=== PATIENT | female | born 1985 | race Caucasian/White ===

== ENCOUNTER 2019-03-02 00:17 | Emergency (ER) | payer OTHER ==
[2019-03-02] MEDS ORDERED: SODIUM CHLORIDE 0.9% 1,000 ML IV STA (00:51)
[2019-03-02] MEDS ORDERED: VANCOMYCIN IV PER PHARMACY 1 EACH MISC MISCELLANE PRN (00:51)
[2019-03-02 01:47] LABS: Basophils # (A) 0.1 k/uL (0-0.2); Basophils % (A) 1 %; Eosinophils # (A) 0.5 k/uL (0-0.7); Eosinophils % (A) 5 %; HCT 40.1 % (34.0-46.0); Lymphocytes # (A) 2.5 k/uL (1.0-4.8); Lymphocytes % (A) 21 %; MCH 29.3 pg (25.0-35.0); MCHC 32.5 g/dL (31.0-37.0); MCV 90.2 fL (80.0-100.0); Mean Platelet Volume 7.8; Monocytes # (A) 0.5 k/uL (0-1.0); Monocytes % (A) 4 %; Neutrophils # (A) 8.1 k/uL (1.3-7.7); Neutrophils % (A) 69 %; Platelet Count 360 k/uL (150-450); RBC 4.44 m/uL (3.80-5.40); RDW 14.8 % (11.5-15.5); WBC 11.7 k/uL (3.8-10.6)
[2019-03-02] MEDS ORDERED: VANCOMYCIN 1,500 MG in SODIUM CHLORIDE 0.9% 250 ML IVPB ONE (02:00)
[2019-03-02 02:01] LABS: ALT 94 U/L (9-52); AST 107 U/L (14-36); African American GFR (CKD) >90 (>60 ml/min/1.73 sqM); Albumin 5.2 g/dL (3.5-5.0); Alkaline Phosphatase 105 U/L (38-126); Anion Gap 14 mmol/L; Blood Urea Nitrogen 14 mg/dL (7-17); Calcium 9.6 mg/dL (8.4-10.2); Carbon Dioxide 22 mmol/L (22-30); Chloride 106 mmol/L (98-107); Glucose 85 mg/dL (74-99); Non-African American GFR(CKD) >90 (>60 ml/min/1.73 sqM); Sodium 142 mmol/L (137-145)
[2019-03-02 02:03] LABS: Potassium 4.9 mmol/L (3.5-5.1)
--- NOTE | 2019-03-02 02:08 | XR ---
EXAM: XR Right Knee, 3 views CLINICAL HISTORY: ITS.REASON XR Reason: pain TECHNIQUE: Three views of the right knee. COMPARISON: No relevant prior studies available. FINDINGS: Bones/joints: No acute fracture. No dislocation. Enthesophyte at the attachment site of the quadriceps tendon on the patella. Soft tissues: Unremarkable. IMPRESSION: No acute findings. Patellar enthesophyte at the attachment site of the quadriceps tendon.
[2019-03-02] MEDS ORDERED: SULFAMETHOX-TMP 800-160MG 1 EACH TAB PO STA (02:27)
[2019-03-02] MEDS ORDERED: SULFAMETH-TMP DS STARTER PACK 2 TAB BTL PO STA (02:27)
[2019-03-02] MEDS ORDERED: ACETAMINOPHEN TAB 325 MG TAB PO STA (03:01)
--- NOTE | 2019-03-02 03:51 | ED ---
General Adult HPI - General Source: patient, RN notes reviewed, old records reviewed Mode of arrival: ambulatory Limitations: no limitations <Rigo Tanner - Last Filed: 03/02/19 03:49> <Jazmin Luna - Last Filed: 03/03/19 07:17> - General Chief complaint: Extremity Problem,Nontraumatic Stated complaint: rt knee pain Time Seen by Provider: 03/02/19 00:39 - History of Present Illness Initial comments: 33-year-old female patient presents ED chief complaint of pain in anterior aspect of right knee. Patient reports that last night she noticed a small bump in the anterior aspect of her right knee. Patient reports that her cat worse and she developed more pain. Patient is weightbearing, was able to work or while shift when she stands. Denies any systemic symptoms, denies any chance that she can be . Systemic: Pt denies fatigue, fever/chills, rash. Pt denies weakness, night sweats, weight loss. Neuro: Pt denies headache, visual disturbances, syncope or pre-syncope. HEENT: Pt denies ocular discharge or irritation, otalgia, rhinorrhea, pharyngitis or notable lymphadenopathy. Cardiopulmonary: Pt denies chest pain, SOB, heart palpitations, dyspnea on exertion. Abdominal/GI: Pt denies abdominal pain, n/v/d. : Pt denies dysuria, burning w/ urination, frequency/urgency. Denies new onset urinary or bowel incontinence. MSK: Pt denies myalgia, loss of strength or function in extremities. Neuro: Pt denies new onset weakness, paresthesias. (Rigo Tanner) - Related Data Previous Rx's Medication Instructions Recorded Sulfamethox-Tmp 800-160Mg [Bactrim 1 tab PO Q12HR #20 tab 03/02/19 DS 800-160 mg] Allergies Allergy/AdvReac Type Severity Reaction Status Date / Time ibuprofen [From Motrin] Allergy Unknown Verified 07/11/16 03:17 Review of Systems ROS Other: All systems not noted in ROS Statement are negative. <Rigo Tanner - Last Filed: 03/02/19 03:49> ROS Other: All systems not noted in ROS Statement are negative. <Jazmin Luna - Last Filed: 08/11/19 07:17> ROS Statement: Those systems with pertinent positive or pertinent negative responses have been documented in the HPI. 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 HEENT: NC/AT, trachea midline, neck supple, no lymphadenopathy. Posterior pharynx non erythematous, without exudates. External ears appear normal, without discharge. Mucous membranes moist. Eyes PERRLA, EOM intact. There is no scleral icterus. No pallor noted. Cardiopulmonary: RRR, no murmurs, rubs or gallops, no JVD noted. Lungs CTAB in anterior and posterior olvera. No peripheral edema. Abdominal exam: Abdomen soft and non-distended. Abdomen non-tender to palpation in all 4 quadrants. Bowel sounds active in LLQ. No hepatosplenomegaly. No ecchymosis Neuro: CN II-XII grossly intact. No nuchal rigidity. No raccon eyes, no lynn sign, no hemotympanum. No cervical spinal tenderness. MSK: Superficial 2 x 2 centimeter abscess noted in anterior aspect of right knee distal to the patella. Incision and drainage performed displayed small amount of pus. Full active range of motion of knee, ambulatory, distal pulses intact and equal. No posterior calf tenderness bilaterally, homans sign negative bilaterally. Posterior tibialis and radial pulse +2 bilaterally. Sensation intact in upper and lower extremities. Full active ROM in upper and lower extremities, 5/5 stregnth. (Rigo Tanner) Course Vital Signs 03/02/19 03/02/19 03/02/19 00:24 02:12 03:07 Temperature 97.6 F 98.2 F 98.3 F Pulse Rate 88 70 79 Respiratory 18 18 18 Rate Blood Pressure 142/99 138/92 119/81 O2 Sat by Pulse 98 100 99 Oximetry 03/02/19 04:19 Temperature 98.8 F Pulse Rate 90 Respiratory 16 Rate Blood Pressure 116/62 O2 Sat by Pulse 100 Oximetry Procedures - Incision & Drainage Consent Obtained: verbal consent Indication: abscess Site: other (superficial R knee abscess) Size (cm): 2 I&D Cleaning Method: Alcohol Wipe Scalpel Used: #11 I&D Drainage Obtained: Pus, Blood Culture Obtained?: Yes Patient Tolerated Procedure: well <Rigo Tanner - Last Filed: 03/02/19 03:49> Medical Decision Making - Lab Data Result diagrams: 03/02/19 01:29 03/02/19 01:29 <Rigo Tanner - Last Filed: 03/02/19 03:49> - Lab Data Result diagrams: 03/02/19 01:29 03/02/19 01:29 <Jazmin Luna - Last Filed: 03/03/19 07:17> - Medical Decision Making 33-year-old male patient presents ED with 2 facial abscess to anterior aspect of right knee. Patient also has stable, afebrile. Physical exam displayed 2 cm abscess which was drained small amount of pus. Full active range of motion of knee, ambulatory. Laboratory investigations revealed mild leukocytosis, otherwise nonpassive. Plain films displayed no acute process. Patient administered 1 dose of vancomycin in ED, will be discharged with Bactrim. Case discussed and pt seen by Dr. Luna. (Rigo Tanner) I personally saw and evaluated the patient. I do not feel the patient has an infected joint or septic joint. Patient has a superficial abscess on the right anterior knee, it was incised and drained. Patient be discharged home on oral antibiotics. (Jazmin Luna) - Lab Data Lab Results 03/02/19 03/02/19 03/02/19 Range/Units 01:29 01:29 01:29 WBC 11.7 H (3.8-10.6) k/uL RBC 4.44 (3.80-5.40) m/uL Hgb 13.0 (11.4-16.0) gm/dL Hct 40.1 (34.0-46.0) % MCV 90.2 (80.0-100.0) fL MCH 29.3 (25.0-35.0) pg MCHC 32.5 (31.0-37.0) g/dL RDW 14.8 (11.5-15.5) % Plt Count 360 (150-450) k/uL Neutrophils % 69 % Lymphocytes % 21 % Monocytes % 4 % Eosinophils % 5 % Basophils % 1 % Neutrophils # 8.1 H (1.3-7.7) k/uL Lymphocytes # 2.5 (1.0-4.8) k/uL Monocytes # 0.5 (0-1.0) k/uL Eosinophils # 0.5 (0-0.7) k/uL Basophils # 0.1 (0-0.2) k/uL Sodium 142 (137-145) mmol/L Potassium 4.9 (3.5-5.1) mmol/L Chloride 106 (98-107) mmol/L Carbon Dioxide 22 (22-30) mmol/L Anion Gap 14 mmol/L BUN 14 (7-17) mg/dL Creatinine 0.54 (0.52-1.04) mg/dL Est GFR (CKD-EPI)AfAm >90 (>60 ml/min/1.73 sqM) Est GFR (CKD-EPI)NonAf >90 (>60 ml/min/1.73 sqM) Glucose 85 (74-99) mg/dL Plasma Lactic Acid Teja 1.4 (0.7-2.0) mmol/L Calcium 9.6 (8.4-10.2) mg/dL Total Bilirubin 1.0 (0.2-1.3) mg/dL AST 107 H (14-36) U/L ALT 94 H (9-52) U/L Alkaline Phosphatase 105 (38-126) U/L Total Protein 9.0 H (6.3-8.2) g/dL Albumin 5.2 H (3.5-5.0) g/dL Disposition Is patient prescribed a controlled substance at d/c from ED?: No <Rigo Tanner - Last Filed: 03/02/19 03:49> <Jazmin Luna - Last Filed: 03/03/19 07:17> Clinical Impression: Abscess Disposition: HOME SELF-CARE Condition: Stable Instructions (If sedation given, give patient instructions): Abscess (ED) Additional Instructions: Patient to adhere to previously discussed treatment plan and will take medication(s) as directed. Patient to follow up with PCP in 1-2 days. Patient to return to ED if symptoms do not improve. Follow-up with primary care provider. Take medication as directed. Return immediately to ER if condition worsens. Prescriptions: Sulfamethox-Tmp 800-160Mg [Bactrim DS 800-160 mg] 1 tab PO Q12HR #20 tab Referrals: None,Stated [Primary Care Provider] - 1-2 days [facility] [NON-STAFF] - 1-2 days
[2019-03-02 04:22] VITALS: BP 116/62; PULSE 90; RESP 16; TEMP 98.8
== END 2019-03-02 04:24 | disposition home or self-care (01) ==
LOC: EC 00:17
DX: L02.415 Cutaneous abscess of right lower limb (principal); D72.829 Elevated white blood cell count, unspecified; F17.200 Nicotine dependence, unspecified, uncomplicated; Z88.6 Allergy status to analgesic agent
CPT/HCPCS: 36415; 80053; 83605; 85025; 87070; 87205; 87075; 73564; 99284; 10060; 96365; 96366; J3370; 87077; 87186

== ENCOUNTER 2019-03-06 23:38 | Inpatient (IN) | payer OTHER ==
[2019-03-07] MEDS ORDERED: VANCOMYCIN IV PER PHARMACY 1 EACH MISC MISCELLANE PRN (01:45)
[2019-03-07] MEDS ORDERED: VANCOMYCIN 1,500 MG in SODIUM CHLORIDE 0.9% 250 ML IVPB STA (01:46)
[2019-03-07 02:26] LABS: Basophils # (A) 0.1 k/uL (0-0.2); Basophils % (A) 1 %; Eosinophils # (A) 0.4 k/uL (0-0.7); Eosinophils % (A) 3 %; HCT 39.9 % (34.0-46.0); Lymphocytes # (A) 3.2 k/uL (1.0-4.8); Lymphocytes % (A) 31 %; MCHC 32.7 g/dL (31.0-37.0); MCV 88.6 fL (80.0-100.0); Mean Platelet Volume 7.9; Monocytes # (A) 0.4 k/uL (0-1.0); Monocytes % (A) 4 %; Neutrophils # (A) 6.2 k/uL (1.3-7.7); Neutrophils % (A) 60 %; Platelet Count 387 k/uL (150-450); RDW 14.7 % (11.5-15.5); WBC 10.5 k/uL (3.8-10.6)
[2019-03-07 02:29] LABS: African American GFR (CKD) >90 (>60 ml/min/1.73 sqM); Anion Gap 14 mmol/L; Blood Urea Nitrogen 13 mg/dL (7-17); Calcium 9.8 mg/dL (8.4-10.2); Carbon Dioxide 24 mmol/L (22-30); Chloride 104 mmol/L (98-107); Glucose 87 mg/dL (74-99); Non-African American GFR(CKD) >90 (>60 ml/min/1.73 sqM); Potassium 3.9 mmol/L (3.5-5.1); Sodium 142 mmol/L (137-145)
[2019-03-07] MEDS ORDERED: ACETAMINOPHEN TAB 325 MG TAB PO PRN (05:57)
[2019-03-07] MEDS ORDERED: NALOXONE 0.4 MG/ML 1 ML VIAL IV PRN (05:57)
--- NOTE | 2019-03-07 06:22 | ED ---
Skin/Abscess/FB HPI - General Chief complaint: Skin/Abscess/Foreign Body Stated complaint: Abcess on Rt Knee Dx MRSA Time Seen by Provider: 03/07/19 00:40 Source: patient Mode of arrival: ambulatory Limitations: no limitations - History of Present Illness Initial comments: This patient is 33-year-old woman who presents for reevaluation of an abscess to the prepatellar area of the right knee. The patient states that this had developed approximately a week ago starting as a small pimple-like lesion. She states over the next 1-2 days it had increased and she was seen here. The patient had incision and drainage performed and was written prescription for Bactrim which she states she has been taking twice per day. Despite this she notes that the abscess has increased in size and there is also moderate amount of pain associated. She has noted some chills but otherwise no systemic symptoms. MD complaint: abscess/boil -: days(s) Tetanus Up to Date: yes Location: RLE Severity: moderate Quality: aching Consistency: constant Improves with: none Worsens with: none Context: none - Related Data Previous Rx's Medication Instructions Recorded Sulfamethox-Tmp 800-160Mg [Bactrim 1 tab PO Q12HR #20 tab 03/02/19 DS 800-160 mg] Allergies Allergy/AdvReac Type Severity Reaction Status Date / Time ibuprofen [From Motrin] Allergy Unknown Verified 07/11/16 03:17 Review of Systems ROS Statement: Those systems with pertinent positive or pertinent negative responses have been documented in the HPI. ROS Other: All systems not noted in ROS Statement are negative. Constitutional: Reports: chills. Denies: fever Respiratory: Denies: cough, dyspnea Cardiovascular: Denies: chest pain, palpitations, syncope Gastrointestinal: Denies: abdominal pain, vomiting, diarrhea Skin: Reports: as per HPI, lesions (Abscess, anterior right patellar area). 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 Absent: respiratory distress, wheezes, rales, rhonchi, stridor Cardiovascular Exam: Present: regular rate, normal rhythm, normal heart sounds. Absent: systolic murmur, diastolic murmur, rubs, gallop GI/Abdominal exam: Present: soft. Absent: tenderness Extremities exam: Present: tenderness (Prepatellar area, right knee), normal capillary refill, other (Patient has approximately 4 cm diameter area of swelling, erythema, warmth to the right prepatellar area. There is abscess centered in this which is draining.). Absent: pedal edema, calf tenderness Skin exam: Present: warm, dry, intact, erythema. Absent: rash Course Vital Signs 03/06/19 03/07/19 23:59 03:55 Temperature 97.5 F L 97.6 F Pulse Rate 62 63 Respiratory 20 18 Rate Blood Pressure 134/90 119/95 O2 Sat by Pulse 100 99 Oximetry Medical Decision Making - Medical Decision Making Patient is 33-year-old woman presenting with worsening of a prepatellar abscess to the right knee. She has been taking Bactrim as outpatient treatment. She did have incision and drainage here on 03/02. Given the worsening on appropriate MRSA coverage, will admit for vancomycin, to have probable PICC line placement and continue as outpatient - Lab Data Result diagrams: 03/07/19 02:10 03/07/19 02:10 Lab Results 03/07/19 03/07/19 Range/Units 02:10 02:10 WBC 10.5 (3.8-10.6) k/uL RBC 4.50 (3.80-5.40) m/uL Hgb 13.0 (11.4-16.0) gm/dL Hct 39.9 (34.0-46.0) % MCV 88.6 (80.0-100.0) fL MCH 29.0 (25.0-35.0) pg MCHC 32.7 (31.0-37.0) g/dL RDW 14.7 (11.5-15.5) % Plt Count 387 (150-450) k/uL Neutrophils % 60 % Lymphocytes % 31 % Monocytes % 4 % Eosinophils % 3 % Basophils % 1 % Neutrophils # 6.2 (1.3-7.7) k/uL Lymphocytes # 3.2 (1.0-4.8) k/uL Monocytes # 0.4 (0-1.0) k/uL Eosinophils # 0.4 (0-0.7) k/uL Basophils # 0.1 (0-0.2) k/uL Sodium 142 (137-145) mmol/L Potassium 3.9 (3.5-5.1) mmol/L Chloride 104 (98-107) mmol/L Carbon Dioxide 24 (22-30) mmol/L Anion Gap 14 mmol/L BUN 13 (7-17) mg/dL Creatinine 0.71 (0.52-1.04) mg/dL Est GFR (CKD-EPI)AfAm >90 (>60 ml/min/1.73 sqM) Est GFR (CKD-EPI)NonAf >90 (>60 ml/min/1.73 sqM) Glucose 87 (74-99) mg/dL Calcium 9.8 (8.4-10.2) mg/dL Disposition Clinical Impression: Abscess Disposition: ADMITTED IP TO THIS HOSP Condition: Fair
[2019-03-07] MEDS: SODIUM CHLORIDE 0.9% 1,000 ML IV SCH (06:30)
--- NOTE | 2019-03-07 07:13 | P.HPIM ---
History of Present Illness H&P Date: 03/07/19 The patient is a 33 yo F with no known PMH who presented to the ED for a R anterior knee ulcer. The patient was previously seen in the ED on 03/02/2019 for similar complaint, and was noted to have a 2 cm anterior right knee abscess which was drained and the patient was discharged home on Bactrim. The culture from the drainage grew MRSA sensitive to Bactrim and the patient notes compliance with antibiotic, though states no improvement. She notes continued right anterior knee pain and swelling. She notes that she initially developed this after she went swimming [place] a local hall, when she had developed a lesion at the site which then gradually worsened. She denied fever, chills, nausea, or vomiting. She underwent an extensive evaluation in the emergency room with WBC count 10.5, hemoglobin 13, platelets 387, sodium 142, potassium 3.9, and glucose 87. She is being admitted to the medicine service for failure of outpatient therapy despite being on appropriate antibiotics. Review of Systems Pertinent positives and negatives as discussed in HPI, a complete review of systems was performed and all other systems are negative. 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 History of Any Multi-Drug Resistant Organisms: MRSA Date of last positivie culture/infection: 03/02/19 MDRO Source:: MRSA KNEE Past Surgical History: Cholecystectomy, Orthopedic Surgery Past Psychological History: No Psychological Hx Reported Smoking Status: Current every day smoker Past Alcohol Use History: None Reported Past Drug Use History: None Reported Medications and Allergies Home Medications Medication Instructions Recorded Confirmed Type Sulfamethox-Tmp 800-160Mg [Bactrim 1 tab PO Q12HR #20 tab 03/02/19 03/07/19 Rx DS 800-160 mg] Allergies Allergy/AdvReac Type Severity Reaction Status Date / Time ibuprofen [From Motrin] Allergy Unknown Verified 07/11/16 03:17 Physical Exam Vitals: Vital Signs Temp Pulse Resp BP Pulse Ox 03/07/19 03:55 97.6 F 63 18 119/95 99 03/06/19 23:59 97.5 F L 62 20 134/90 100 Intake and Output 03/06/19 03/07/19 03/07/19 22:59 06:59 14:59 Other: Weight 83.461 kg General: non toxic, no distress, appears at stated age, obese Derm: Right anterior knee abscess, immediately distal to the patella Head: atraumatic, normocephalic, symmetric Eyes: EOMI, no lid lag, anicteric sclera, pupils equal round reactive to light ENT: Nose and ears atraumatic, no thrush, no pharyngeal erythema Neck: No thyromegaly, no cervical lymphadenopathy, trachea midline, supple Mouth: no lip lesion, mucus membranes moist Cardiovascular: S1S2 reg, no murmur, positive posterior tibial pulse bilateral, no edema, capillary refill less than 2 seconds Lungs: CTA bilateral, no rhonchi, no rales , no accessory muscle use Abdominal: soft, nontender to palpation, no guarding, no appreciable organomegaly, normal bowel sounds Ext: no gross muscle atrophy, muscle strength 5 out of 5 in all 4 extremities grossly, limited range of motion in right lower extremity due to pain, no contractures, Neuro: CN II-XI grossly intact, light touch intact all 4 extremities, finger to nose within normal limits, Psych: Alert, oriented, appropriate affect Results CBC & Chem 7: 03/07/19 02:10 03/07/19 02:10 Assessment and Plan Plan: Right knee abscess, MRSA -Continue with vancomycin -Patient will likely need a PICC line for outpatient antibiotics DVT prophylaxis -Lovenox The patient is admitted with an anticipated less than 2 midnight stay for evaluation of R knee abscess CODE STATUS:Full Code Discussed with: Patient, Anticipated discharge date: 03/08/[address]: Home A total of 35 minutes was spent on the care of this complex patient more than 50% of the time was spent in counseling and care coordination.
[2019-03-07 07:57] VITALS: BMI 30.6
--- NOTE | 2019-03-07 09:50 | P.CNOR ---
History of Present Illness - [facility] Consult date: 03/07/19 Consult reason: other History of present illness: Patient is a 33-year-old female who presented to [facility] early this morning regarding a right knee problem. Patient developed an ulcer type lesion on the knee about a week ago [facility] She did report to [facility] on 03/02/2019, the emergency staff performed an I&D at the bedside, cultures were taken. She was placed on oral Bactrim and discharged home. She presented back to the hospital today, no improvement in her symptoms. She was then admitted into the observation unit under internal medicine for further workup, our orthopedic team was consulted. Patient was examined today at bedside, she is resting comfortably, she has family present. She notes most discomfort over the lower anterior aspect of the right knee. She has no issue with extending or flexing the knee. She denies any hip pain. She denies any foot and ankle pain. She denies any recent trauma to the region. She denies any previous orthopedic surgery involving the right lower extremity. 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 History of Any Multi-Drug Resistant Organisms: MRSA Year Discovered:: 03/02/19 MDRO Source:: MRSA KNEE Past Surgical History: Cholecystectomy, Orthopedic Surgery Past Psychological History: No Psychological Hx Reported Smoking Status: Current every day smoker Past Alcohol Use History: None Reported Past Drug Use History: None Reported Medications and Allergies Home Medications Medication Instructions Recorded Confirmed Type Sulfamethox-Tmp 800-160Mg [Bactrim 1 tab PO Q12HR #20 tab 03/02/19 03/07/19 Rx DS 800-160 mg] Acetaminophen [Tylenol] 650 mg PO Q6H PRN 03/07/19 03/07/19 History Allergies Allergy/AdvReac Type Severity Reaction Status Date / Time ibuprofen [From Motrin] Allergy Unknown Verified 03/07/19 07:43 Physical Examination Right lower extremity: Obvious lesion over the anterior inferior aspect of the right knee, there is erythema and soft tissue swelling. Tenderness with palpation over the prepa tellar bursa of the right knee. There is purulent drainage noted. No obvious effusion is appreciated on exam. She can extend and flex the knee fully with minimal difficulty. Logroll maneuver the hip reproduces no pain. Calf is soft, no tenderness with palpation. Plantar flexion, dorsiflexion, EHL, FHL are intact. Sensory exam to light touch is intact. Dorsal pedis pulses 2+. Results - Labs Labs: H & H 03/07/19 Range/Units 02:10 Hgb 13.0 (11.4-16.0) gm/dL Hct 39.9 (34.0-46.0) % Result Diagrams: 03/07/19 02:10 03/07/19 02:10 Assessment and Plan Plan: Assessment: 1. Right knee infected prepatellar bursa 2. Status post I&D right knee abscess 3. Failed outpatient antibiotic treatment Plan: I was able to discuss the case, including with physical exam findings with my attending physician Dr. Navarrete. We would like to proceed with a incision and drainage with possible irrigation and debridement of the prepatellar bursa on the right knee. Patient did eat breakfast this morning, so we will be unable to do this afternoon. Our plan is to proceed with his surgery on 03/08/2019. Risk and benefits of the procedure were discussed with patient at bedside, she is in good understanding and would like to proceed. Obtain consent. Nothing by mouth after midnight Previous cultures that were done on 03/02/2019 did reveal MRSA infection. Infectious disease consult for outpatient antibiotic treatment Weight-bear as tolerated Medical recommendations Further recommendations to follow Time with Patient: Less than 30
[2019-03-07] MEDS ORDERED: VANCOMYCIN 1,500 MG in SODIUM CHLORIDE 0.9% 250 ML IVPB SCH ×4 (10:00)
[2019-03-07] MEDS: KETOROLAC 30 MG/ML 1 ML VIAL IVP SCH ×2 (16:16→23:23)
--- NOTE | 2019-03-07 17:03 | P.PN ---
Subjective Progress Note Date: 03/07/19 Principal diagnosis: right knee pain Patient is a 33-year-old female with no known past medical history who presented to the ER for right anterior knee abscess. Patient was initially seen in the ER on 03/02/19 for similar complaints at that point in time she was noted to have a 2 cm anterior right knee abscess which was drained and she was subsequently discharged home on Bactrim. Culture from the prior abscess grew MRSA sensitive to Bactrim and patient reported compliance with antibiotics. Her knee did not improve so she really presented to the ER. On presentation there her vital signs were within normal limits and laboratory analysis is essentially unremarkable. She did not have any repeat imaging as she had a x-ray of her knee prior which did not show any bony abnormality. Seen by orthopedic surgery and recommendations are for I&D in the OR which will be done on 03/08/19 Patient seen and examined at bedside. She denies any chest pain, shortness nadeem ath, nausea, vomiting, or diarrhea. She is still having significant pain in her right knee. She states that Toradol has been helping some but wears off quickly. Objective - Vital Signs Vital signs: Vital Signs Temp 98.8 F 03/07/19 16:00 Pulse 80 03/07/19 16:00 Resp 16 03/07/19 16:00 BP 93/52 03/07/19 16:00 Pulse Ox 98 03/07/19 16:00 Intake & Output 03/06/19 03/07/19 03/07/19 18:59 06:59 18:59 Weight 83.461 kg - Exam General: non toxic, no distress, appears at stated age Derm: Disclosed the right patella there is a large area of fluctuance draining purulent material, warm, dry Head: atraumatic, normocephalic, symmetric Eyes: EOMI, no lid lag, anicteric sclera Mouth: no lip lesion, mucus membranes moist Cardiovascular: S1S2 reg, no murmur, positive posterior tibial pulse bilateral, Lungs: CTA bilateral, no rhonchi, no rales , no accessory muscle use Abdominal: soft, nontender to palpation, no guarding, no appreciable organomegaly Ext: no gross muscle atrophy, no edema, no contractures Neuro: CN II-XI grossly intact, no focal neuro deficits Psych: Alert, oriented, appropriate affect - Labs CBC & Chem 7: 03/07/19 02:10 03/07/19 02:10 Assessment and Plan Assessment: Right knee abscess, failed outpatient treatment -Pain control, vancomycin -Infectious disease consultation requested by orthopedic surgery -Plan is for incision and drainage in a.m. -IV fluids -Repeat kidney function in a.m. Tobacco abuse -Cessation -Nicotine replacement Obesity with BMI 30.6 -Outpatient structured weight loss DVT prophylaxis: Early ambulation Discussed with: Patient, nursing, orthopedic surgery Anticipated discharge: In a.m. Anticipated discharge place: Home A total of 35 minutes was spent on the care of this complex patient more than 50% of the time was spent in counseling and care coordination.
[2019-03-07 17:06] LABS: Appearance,Urine Clear (Clear); Bilirubin,Urine Negative (Negative); Blood,Urine Negative (Negative); Color,Urine Yellow; Glucose,Urine (UA) Negative (Negative); Ketones,Urine Negative (Negative); Leukocyte Esterase,Urine Moderate (Negative); Mucus,Urine Rare /hpf; Nitrite,Urine Negative (Negative); PH, Urine 6.5 (5.0-8.0); Protein,Urine Negative (Negative); RBC,Urine <1 /hpf (0-5); Specific Gravity,Urine 1.012 (1.001-1.035); Squamous Epithelial Cell,Urine 5 /hpf (0-4); WBC,Urine 6 /hpf (0-5)
[2019-03-07 17:14] LABS: Amphetamine Screen,Urine Not Detected (NotDetected); Barbiturate Screen,Urine Not Detected (NotDetected); Benzodiazepines Screen,Urine Not Detected (NotDetected); Cocaine Screen,Urine Not Detected (NotDetected); Methadone Screen, Urine Not Detected (NotDetected); Opiate Screen,Urine Not Detected (NotDetected); Oxycodone Screen, Urine Not Detected (NotDetected); Phencyclidine Screen,Urine Not Detected (NotDetected); Tricyclic Antidepressant,Urine Not Detected (NotDetected); Urn Cannabinoid Scrn Not Detected (NotDetected)
[2019-03-07] MEDS: NICOTINE 7MG/24HR PATCH TRANSDERM SCH (17:49)
[2019-03-07] MEDS: VANCOMYCIN 1,500 MG in SODIUM CHLORIDE 0.9% 250 ML IVPB SCH (18:06)
[2019-03-07] MEDS: LACTATED RINGERS 1,000 ML IV SCH (22:39)
--- NOTE | 2019-03-07 22:59 | P.CONS ---
History of Present Illness - Reason for Consult Consult date: 03/07/19 - Chief Complaint right knee pain - History of Present Illness 33-year-old woman presents to the emergency center for further evaluation. She been the ER a few days prior where she is having difficulties with her right knee. She's having pain and swelling and development of the wound that was pa inful swollen and having some drainage. The site was cultured and she was placed on Bactrim with some local wound care. Despite taking her antibiotics and having some local wound care of the site continued to worsen that she now presents with much increased size to the knee, pain and discomfort that is increased as well as some low-grade fever and leukocytosis. She subsequently is brought in the hospital been seen by orthopedics with plans for a surgical intervention. The patient has a somewhat complex history in that she stays in [place] [facility] house after her time in [place], she was there because of failure of child support as well as drug possession. She relates that Crystal meth has been her previous drug of choice is currently not actively using. She's trying to improve her status so that she would be able to spend some time with her children. She relates that she was with friends and she was swimming in the [place]. She does not recall any distinct injury for the onset of the wound to the knee and it's drainage. The pain and swelling are significant and it limits her a bility to ambulate. Review of Systems HEENT:Denies headache or acute visual change. Denies sinus or mouth discomforts. Denies neck stiffness or pain. Denies significant oral cavity pain. Denies difficulty on swallowing. Lungs: Denies significant shortness of breath, cough, sputum production, or hemoptysis. Cardiovascular: Denies significant shortness of breath, chest pain, chest wall pain, orthopnea, dyspnea on exertion, syncope Gastrointestinal:Denies nausea, vomiting, diarrhea, constipation, hematemesis, melena, hematochezia. No no significant change of bowel habit noticed. Musculoskeletal: denies significant myalgias or arthralgias. No new joint swe lling. Denies new back pain. Skin: as per the HPI lesion on her right knee Neuro: Denies headache or visual change. Denies any new onset weakness or difficulty with ambulation. Denies falls or seizures. Psychiatric:chronic anxiety and depression Endocrine: has some fatigue. Weight is starting to improve with stop of her drug use 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 History of Any Multi-Drug Resistant Organisms: MRSA Year Discovered:: 03/02/19 MDRO Source:: MRSA KNEE Past Surgical History: Cholecystectomy, Orthopedic Surgery Past Psychological History: No Psychological Hx Reported Additional Psychological History / Comment(s): Single. 3 children are all in foster homes related to her drug use and legal problems. Ongoing tobacco smoker. Denies significant alcohol use. He has a extensive history of recreational drug use with crystal methamphetamine being her primary drug of choice. No international travel. experience. Resides [place] [facility] [place]. Is not in a formal rehab program, thinks she may attend some NA meetings. No animal exposures Smoking Status: Current every day smoker Past Alcohol Use History: None Reported Past Drug Use History: None Reported Medications and Allergies Home Medications and Allergies Comment(s): Current Medications Acetaminophen (Tylenol Tab) 650 mg PO Q6HR PRN PRN Reason: Mild Pain or Fever > 100.5 Last Admin: 03/07/19 08:09 Dose: 650 mg Documented by: Hydrocodone Bitart/Acetaminophen ([place] 5-325) 1 each PO Q6HR PRN PRN Reason: Moderate Pain Sodium Chloride (Saline 0.9%) 1,000 mls @ 20 mls/hr IV .Q24H [facility] Last Admin: 03/07/19 06:30 Dose: 20 mls/hr Documented by: Vancomycin HCl 1,500 mg/ (Sodium Chloride) 250 mls @ 125 mls/hr IVPB Q8H [facility] Last Admin: 03/07/19 18:06 Dose: 125 mls/hr Documented by: Lactated Ringer's (Lactated Ringers) 1,000 mls @ 20 mls/hr IV .Q24H [facility] Last Admin: 03/07/19 22:39 Dose: Not Given Documented by: Ketorolac Tromethamine (Toradol) 30 mg IVP Q6HR [facility] Stop: 03/12/19 16:01 Last Admin: 03/07/19 16:16 Dose: 30 mg Documented by: Miscellaneous Information (Vancomycin Trough Due) 1 each MISCELLANE ONCE ONE Stop: 03/08/19 09:01 Naloxone HCl (Narcan) 0.2 mg IV Q2M PRN PRN Reason: Opioid Reversal Nicotine (Habitrol 7mg/24hr Patch) 1 patch TRANSDERM DAILY [facility] Last Admin: 03/07/19 17:49 Dose: 1 patch Documented by: Home Medications Medication Instructions Recorded Confirmed Type Sulfamethox-Tmp 800-160Mg [Bactrim 1 tab PO Q12HR #20 tab 03/02/19 03/07/19 Rx DS 800-160 mg] Acetaminophen [Tylenol] 650 mg PO Q6H PRN 03/07/19 03/07/19 History Allergies Allergy/AdvReac Type Severity Reaction Status Date / Time ibuprofen [From Motrin] Allergy Rash/Hives Verified 03/07/19 15:18 Physical Exam Vitals: Vital Signs Temp Pulse Pulse Resp BP BP Pulse Ox 03/07/19 16:00 98.8 F 80 16 93/52 98 03/07/19 07:46 71 03/07/19 06:30 97.3 F L 71 16 105/69 97 03/07/19 03:55 97.6 F 63 18 119/95 99 03/06/19 23:59 97.5 F L 62 20 134/90 100 Intake and Output 03/07/19 03/07/19 03/07/19 06:59 14:59 22:59 Other: Voiding Method Toilet # Voids 1 Weight 83.461 kg HEENT: Anicteric conjunctiva are pink and moist nasal mucosa grossly intact without significant lesions, there is no thrush. Oral cavity shows the very p oor dentition with the generalized fracturing carious teeth commonly seen with crystal methamphetamine use Neck: The neck is supple without significant lymphadenopathy or thyromegaly. Lungs: Good bilateral air entry with evidence of some expiratory wheezing but no significant bronchial sounds Heart: Regular rate and rhythm with an audible S1-S2, no S3 no S4. There is no significant murmur click or rub, PMI was nondisplaced. Abdomen: Positive bowel sounds soft and nontender without palpable masses or organomegaly. There was no guarding or rebound. Extremities: The upper extremities have excellent pulses they are symmetric, no significant petechiae or telangiectasia. No splinter hemorrhages were noted. Left lower extremity without acute abnormalities or edema. Regular actually shows evidence of significant swelling especially about the knee. The ulceration is noted that has purulent drainage there is dense erythema and fluctuance. There is distinct tenderness to the manipulation. She has pain upon bearing weight but is able to bend the joint. The right hip and ankle are without difficulties with range of motion. There is no significant right inguinal lymphadenopathy no other abnormal lymph nodes were noted Neuro: Awake alert oriented to person place and time. There are no acute new gross focal sensory motor deficits. Results CBC & Chem 7: 03/07/19 02:10 03/07/19 02:10 Labs: Abnormal Lab Results - Last 24 Hours (Table) 03/07/19 Range/Units 16:00 Ur Leukocyte Esterase Moderate H (Negative) Urine WBC 6 H (0-5) /hpf Ur Squamous Epith Cells 5 H (0-4) /hpf Urine Mucus Rare H (None) /hpf Laboratory Results WBC 10.5 k/uL (3.8-10.6) 03/07/19 02:10 RBC 4.50 m/uL (3.80-5.40) 03/07/19 02:10 Hgb 13.0 gm/dL (11.4-16.0) 03/07/19 02:10 Hct 39.9 % (34.0-46.0) 03/07/19 02:10 MCV 88.6 fL (80.0-100.0) 03/07/19 02:10 MCH 29.0 pg (25.0-35.0) 03/07/19 02:10 MCHC 32.7 g/dL (31.0-37.0) 03/07/19 02:10 RDW 14.7 % (11.5-15.5) 03/07/19 02:10 Plt Count 387 k/uL (150-450) 03/07/19 02:10 Neutrophils % 60 % 03/07/19 02:10 Lymphocytes % 31 % 03/07/19 02:10 Monocytes % 4 % 03/07/19 02:10 Eosinophils % 3 % 03/07/19 02:10 Basophils % 1 % 03/07/19 02:10 Neutrophils # 6.2 k/uL (1.3-7.7) 03/07/19 02:10 Lymphocytes # 3.2 k/uL (1.0-4.8) 03/07/19 02:10 Monocytes # 0.4 k/uL (0-1.0) 03/07/19 02:10 Eosinophils # 0.4 k/uL (0-0.7) 03/07/19 02:10 Basophils # 0.1 k/uL (0-0.2) 03/07/19 02:10 Sodium 142 mmol/L (137-145) 03/07/19 02:10 Potassium 3.9 mmol/L (3.5-5.1) 03/07/19 02:10 Chloride 104 mmol/L (98-107) 03/07/19 02:10 Carbon Dioxide 24 mmol/L (22-30) 03/07/19 02:10 Anion Gap 14 mmol/L 03/07/19 02:10 BUN 13 mg/dL (7-17) 03/07/19 02:10 Creatinine 0.71 mg/dL (0.52-1.04) 03/07/19 02:10 Est GFR (CKD-EPI)AfAm >90 (>60 ml/min/1.73 sqM) 03/07/19 02:10 Est GFR (CKD-EPI)NonAf >90 (>60 ml/min/1.73 sqM) 03/07/19 02:10 Glucose 87 mg/dL (74-99) 03/07/19 02:10 Calcium 9.8 mg/dL (8.4-10.2) 03/07/19 02:10 Urine Color Yellow 03/07/19 16:00 Urine Appearance Clear (Clear) 03/07/19 16:00 Urine pH 6.5 (5.0-8.0) 03/07/19 16:00 Ur Specific [place] 1.012 (1.001-1.035) 03/07/19 16:00 Urine Protein Negative (Negative) 03/07/19 16:00 Urine Glucose (UA) Negative (Negative) 03/07/19 16:00 Urine Ketones Negative (Negative) 03/07/19 16:00 Urine Blood Negative (Negative) 03/07/19 16:00 Urine Nitrite Negative (Negative) 03/07/19 16:00 Urine Bilirubin Negative (Negative) 03/07/19 16:00 Urine Urobilinogen 2.0 mg/dL (<2.0) 03/07/19 16:00 Ur Leukocyte Esterase Moderate (Negative) H 03/07/19 16:00 Urine RBC <1 /hpf (0-5) 03/07/19 16:00 Urine WBC 6 /hpf (0-5) H 03/07/19 16:00 Ur Squamous Epith Cells 5 /hpf (0-4) H 03/07/19 16:00 Urine Mucus Rare /hpf (None) H 03/07/19 16:00 Urine HCG, Qual Not Detected (Not Detectd) 03/07/19 16:00 Urine Opiates Screen Not Detected (NotDetected) 03/07/19 16:00 Ur Oxycodone Screen Not Detected (NotDetected) 03/07/19 16:00 Urine Methadone Screen Not Detected (NotDetected) 03/07/19 16:00 Ur Propoxyphene Screen Not Detected (NotDetected) 03/07/19 16:00 Ur Barbiturates Screen Not Detected (NotDetected) 03/07/19 16:00 U Tricyclic Antidepress Not Detected (NotDetected) 03/07/19 16:00 Ur Phencyclidine Scrn Not Detected (NotDetected) 03/07/19 16:00 Ur Amphetamines Screen Not Detected (NotDetected) 03/07/19 16:00 U Methamphetamines Scrn Not Detected (NotDetected) 03/07/19 16:00 U Benzodiazepines Scrn Not Detected (NotDetected) 03/07/19 16:00 Urine Cocaine Screen Not Detected (NotDetected) 03/07/19 16:00 U Marijuana (THC) Screen Not Detected (NotDetected) 03/07/19 16:00 outpatient culture with MRSA Assessment and Plan (1) Abscess Current Visit: Yes Status: Acute Code(s): L02.91 - CUTANEOUS ABSCESS, UNSPECIFIED SNOMED Code(s): 013221293 (2) Infection of right prepatellar bursa Narrative/Plan: 33-year-old female presents to the hospital with increasing pain and s welling to the right knee, without significant improvement after being seen in the emergency center and placed on oral Bactrim. Anti-inflammatories were also given without significant improvement of her acute pain. She currently presents with the increasing swelling discomfort and drainage to the knee. She's been evaluated by orth[facility]icsplans for incision and drainage to that site tomorrow. Based on the outpatient culture vancomycin has been initiated. Toradol was added to try to improve her pain and discomfort. Leukocytosis record related to the infection of the knee. The findings of surgery will help determine the course of antibiotic therapy after her discharge. She resides in a [place] [facility] house and would not be a candidate for any type of IV therapy. She is a smoker and requests a nicotine patch. Current Visit: Yes Status: Acute Code(s): M71.161 - OTHER INFECTIVE BURSITIS, RIGHT KNEE SNOMED Code(s): 6150436221466080
[2019-03-08] MEDS: VANCOMYCIN 1,500 MG in SODIUM CHLORIDE 0.9% 250 ML IVPB SCH ×3 (01:28→18:06)
[2019-03-08] MEDS: KETOROLAC 30 MG/ML 1 ML VIAL IVP SCH ×4 (05:39→23:58)
[2019-03-08] MEDS: SODIUM CHLORIDE 0.9% 1,000 ML IV SCH (06:12)
[2019-03-08] MEDS ORDERED: VANCOMYCIN TROUGH DUE 1 EACH MISC MISCELLANE ONE (09:00)
[2019-03-08] MEDS: NICOTINE 7MG/24HR PATCH TRANSDERM SCH (09:23)
[2019-03-08 09:55] LABS: African American GFR (CKD) >90 (>60 ml/min/1.73 sqM); Anion Gap 6 mmol/L; Blood Urea Nitrogen 16 mg/dL (7-17); Calcium 8.9 mg/dL (8.4-10.2); Carbon Dioxide 23 mmol/L (22-30); Chloride 111 mmol/L (98-107); Glucose 88 mg/dL (74-99); Non-African American GFR(CKD) >90 (>60 ml/min/1.73 sqM); Potassium 4.8 mmol/L (3.5-5.1); Sodium 140 mmol/L (137-145)
[2019-03-08] MEDS: HYDROcodone/APAP 5-325MG 1 EACH TAB PO PRN ×2 (10:52→20:46)
[2019-03-08] MEDS ORDERED: IV FLUID CONTINUATION 1,000 ML IV ONE (12:56)
[2019-03-08] MEDS ORDERED: DEXAMETHASONE SOD PHOS (MDV) 100 MG/10 ML VIAL IVP ONE (13:03)
[2019-03-08] MEDS ORDERED: ONDANSETRON 4 MG/2 ML VIAL IVP ONE (13:03)
[2019-03-08] MEDS ORDERED: fentaNYL (PF) 50 MCG/ML 2 ML AMP ONE (13:15)
[2019-03-08] MEDS ORDERED: LIDOCAINE 1% INJ 10MG/ML (20 ML MDV) ONE (13:15)
[2019-03-08] MEDS ORDERED: MIDAZOLAM 2 MG/2 ML VIAL ONE (13:15)
[2019-03-08] MEDS ORDERED: PROPOFOL 10 MG/ML 20 ML VIAL IV ONE (13:15)
[2019-03-08] MEDS ORDERED: ceFAZolin 3,000 MG in SODIUM CHLORIDE 0.9% IRRIGATIO 3,000 ML IRRIGATION ONE (13:54)
--- NOTE | 2019-03-08 14:00 | P.OP ---
Date of Procedure: 03/08/19 Preoperative Diagnosis: Septic right prepatellar bursitis Postoperative Diagnosis: Same Procedure(s) Performed: Incision and drainage with irrigation and debridement right septic prepatellar bursitis Anesthesia: JUSTINA Surgeon: Rigo Navarrete Pocket [employer] Pulley Machine Operator #1: Andrea Del Toro Estimated Blood Loss (ml): 5 Pathology: other (Deep cultures) Condition: stable Disposition: PACU Indications for Procedure: The patient's a 33-year-old female presents with a one-week history of progressive right knee pain, erythema, swelling, and drainage. She failed outpatient therapy. He discussion of the risks and benefits of operative intervention was made with patient and she elected to proceed. Operative risks to include persistence of infection and possible need for subsequent procedures was discussed. Informed consent was obtained. Operative Findings: As below Description of Procedure: The patient was brought to the operating room, and after induction of general anesthesia the right lower extremity was prepped and draped in normal fashion. The limb was elevated to facilitate exsanguination. The tourniquet was inflated to 250 mmHg. A 3 cm incision was then made over the area fluctuance over the prepatellar region. The skin and subcutaneous tissues were divided sharply. Gross purulence was expressed. Deep cultures were obtained. The prepatellar bursal tissue was excised sharply with a scalpel. Necrotic wound edges were also debrided sharply with a scalpel. The wound was copiously irrigated with normal saline. The skin was loosely reapproximated with 30 simple nylon sutures over a drain. A sterile dressing was applied. The tourniquet was deflated less than 25 minutes total tourniquet time. The patient was awoken from general anesthesia and transferred to recovery room in good condition. Blood loss was estimated 5 mL. No complications were incurred. Sponge and needle counts were correct in the case.
[2019-03-08] MEDS: HYDROmorphone 1 MG/ML 1 ML SYRINGE IVP ONE ×2 (14:17→14:26)
--- NOTE | 2019-03-08 18:59 | P.PN ---
Subjective Progress Note Date: 03/08/19 Principal diagnosis: right knee pain Patient is a 33-year-old female with no known past medical history who presented to the ER for right anterior knee abscess. Patient was initially seen in the ER on 03/02/19 for similar complaints at that point in time she was noted to have a 2 cm anterior right knee abscess which was drained and she was subsequently discharged home on Bactrim. Culture from the prior abscess grew MRSA sensitive to Bactrim and patient reported compliance with antibiotics. Her knee did not improve so she really presented to the ER. On presentation there her vital signs were within normal limits and laboratory analysis is essentially unremarkable. She did not have any repeat imaging as she had a x-ray of her knee prior which did not show any bony abnormality. Seen by orthopedic surgery and recommendations were for I and D which was completed on 03/08 with insertion of a drain and sutures, found to have grossly purulent fluid. Patient seen and examined at bedside. Knee is still numb, no chest pain, SOB, nausea, or vomiting, no diarrhea. Objective - Vital Signs Vital signs: Vital Signs Temp 97.9 F 03/08/19 18:39 Pulse 72 03/08/19 18:39 Resp 14 03/08/19 18:39 BP 114/61 03/08/19 18:39 Pulse Ox 98 03/08/19 18:39 Intake & Output 03/07/19 03/08/19 03/08/19 18:59 06:59 18:59 Intake Total 601 Output Total 5 Balance 596 Intake: IV 601 Output: Estimated Blood Loss 5 Other: Voiding Method Toilet Toilet # Voids 1 3 - Exam General: non toxic, no distress, appears at stated age Derm: Right knee with dressing in place, warm, dry Head: atraumatic, normocephalic, symmetric Eyes: EOMI, no lid lag, anicteric sclera Mouth: no lip lesion, mucus membranes moist Cardiovascular: S1S2 reg, no murmur, positive posterior tibial pulse bilateral, Lungs: CTA bilateral, no rhonchi, no rales , no accessory muscle use Abdominal: soft, nontender to palpation, no guarding, no appreciable organomegaly Ext: no gross muscle atrophy, no edema, no contractures Neuro: CN II-XI grossly intact, no focal neuro deficits Psych: Alert, oriented, appropriate affect - Labs CBC & Chem 7: 03/07/19 02:10 03/08/19 09:31 Labs: Abnormal Lab Results - Last 24 Hours (Table) 03/08/19 Range/Units 09:31 Chloride 111 H (98-107) mmol/L Microbiology - Last 24 Hours (Table) 03/08/19 12:57 Fungal Culture - Preliminary Knee - Right 03/08/19 13:57 Anaerobic Culture - Preliminary Knee - Right 03/08/19 12:57 Anaerobic Culture - Preliminary Knee - Right 03/08/19 13:57 Wound Culture - Preliminary Knee - Right 03/08/19 12:57 Wound Culture - Preliminary Knee - Right 03/08/19 13:57 Fungal Culture - Preliminary Knee - Right 03/07/19 02:10 Blood Culture - Preliminary Blood No Growth after 24 hours Assessment and Plan Assessment: Right knee abscess MRSA, failed outpatient treatment - s/p I and D with drain in place -Pain control, vancomycin -Infectious disease recs appreciated no IV ABX at discharge patient currently [facility] at a [facility] and hx of Meth use. -IV fluids -Repeat kidney function in a.m. Tobacco abuse -Cessation -Nicotine replacement Obesity with BMI 30.6 -Outpatient structured weight loss Social stressor: homeless DVT prophylaxis: Early ambulation Discussed with: Patient, nursing Anticipated discharge: In a.m. Anticipated discharge place: Home A total of 35 minutes was spent on the care of this complex patient more than 50% of the time was spent in counseling and care coordination.
[2019-03-08] MEDS: LACTATED RINGERS 1,000 ML IV SCH (22:45)
[2019-03-09] MEDS: VANCOMYCIN 1,500 MG in SODIUM CHLORIDE 0.9% 250 ML IVPB SCH ×2 (01:38→11:09)
[2019-03-09] MEDS: SODIUM CHLORIDE 0.9% 1,000 ML IV SCH (06:07)
[2019-03-09] MEDS: KETOROLAC 30 MG/ML 1 ML VIAL IVP SCH ×2 (06:40→11:18)
[2019-03-09] MEDS: HYDROcodone/APAP 5-325MG 1 EACH TAB PO PRN (08:44)
[2019-03-09] MEDS: NICOTINE 7MG/24HR PATCH TRANSDERM SCH (08:44)
[2019-03-09] MEDS ORDERED: VANCOMYCIN TROUGH DUE 1 EACH MISC MISCELLANE ONE (09:00)
[2019-03-09 09:11] VITALS: BP 117/61; PULSE 78; RESP 18; TEMP 97.2
--- NOTE | 2019-03-09 09:34 | P.PN ---
Subjective Progress Note Date: 03/09/19 Principal diagnosis: Status post right knee olecranon bursectomy Patient evaluated bedside today, Dr. Navarrete is available to examine patient also. She is resting comfortably. She did have some increase in pain last night. There is also some increase in drainage, we discussed with nursing, bandages were reinforced. Denies any chest pain or shortness of breath. Objective - Vital Signs Vital signs: Vital Signs Temp 97.2 F L 03/09/19 08:00 Pulse 78 03/09/19 08:00 Resp 18 03/09/19 08:00 BP 117/61 03/09/19 08:00 Pulse Ox 97 03/09/19 08:00 Intake & Output 03/08/19 03/09/19 03/09/19 18:59 06:59 18:59 Intake Total 601 Output Total 5 Balance 596 Intake: IV 601 Output: Estimated Blood Loss 5 Other: Voiding Method Toilet Bedpan Bedpan # Voids 3 1 - Exam Right lower extremity: Initial postop bandages were removed, copious amounts of bloody drainage noted on the bandage. Incision is intact, praveen are in good position. Excess bloody drainage was removed from the leg, new bandages were placed. Calf is soft, no tenderness with palpation, plantar flexion, dorsiflexion, EHL, FHL are intact. - Labs CBC & Chem 7: 03/07/19 02:10 03/08/19 09:31 Labs: Abnormal Lab Results - Last 24 Hours (Table) 03/08/19 Range/Units 09:31 Chloride 111 H (98-107) mmol/L Microbiology - Last 24 Hours (Table) 03/07/19 02:10 Blood Culture - Preliminary Blood No Growth after 48 hours 03/08/19 12:57 Gram Stain - Preliminary Knee - Right Wound Culture - Preliminary 03/08/19 13:57 Gram Stain - Preliminary Knee - Right Wound Culture - Preliminary 03/08/19 12:57 Fungal Culture - Preliminary Knee - Right 03/08/19 13:57 Anaerobic Culture - Preliminary Knee - Right 03/08/19 12:57 Anaerobic Culture - Preliminary Knee - Right 03/08/19 13:57 Fungal Culture - Preliminary Knee - Right Assessment and Plan Plan: Assessment: 1. Postop day #1 status post right knee infected olecranon bursectomy Plan: Wound care was discussed with patient, daily dressing changes once home Weight-bear as tolerated, avoid excess flexion of the knee Icing and elevating techniques were discussed Pain control, plan for discharge on tramadol 50 mg An orthopedic standpoint, patient is stable for discharge. Infectious disease recommendations for outpatient antibiotic treatment. Patient was [facility] Time with Patient: Less than 30
[2019-03-09 10:09] LABS: African American GFR (CKD) >90 (>60 ml/min/1.73 sqM); Anion Gap 6 mmol/L; Blood Urea Nitrogen 12 mg/dL (7-17); Calcium 9.3 mg/dL (8.4-10.2); Carbon Dioxide 25 mmol/L (22-30); Chloride 110 mmol/L (98-107); Glucose 139 mg/dL (74-99); Non-African American GFR(CKD) >90 (>60 ml/min/1.73 sqM); Potassium 4.1 mmol/L (3.5-5.1); Sodium 141 mmol/L (137-145)
[2019-03-09 10:14] LABS: HCT 32.9 % (34.0-46.0); HGB 10.4 gm/dL (11.4-16.0); MCH 28.9 pg (25.0-35.0); MCHC 31.7 g/dL (31.0-37.0); MCV 91.4 fL (80.0-100.0); Mean Platelet Volume 7.4; Platelet Count 337 k/uL (150-450); RDW 12.8 % (11.5-15.5); WBC 12.1 k/uL (3.8-10.6)
--- NOTE | 2019-03-09 13:05 | P.DS ---
Providers Date of admission: 03/08/19 13:38 Expected date of discharge: 03/09/19 Attending physician: Connor Hamm MD Consults: 03/07/19 07:32 Consult Physician Routine Consulting Provider: Rigo Navarrete Consult Reason/Comments: knee abscess Do you want consulting provider notified?: Yes 03/07/19 09:24 Consult Physician Routine Consulting Provider: Charles Lipscomb Consult Reason/Comments: Right knee abscess Do you want consulting provider notified?: Yes, Notify in am Primary care physician: Stated None Hospital Course: Discharge Diagnosis: MRSA right knee abscess Tobacco abuse Obesity BMI 30.6 Hx of drug use Hospital Course: Patient is a 33-year-old female with no known past medical history who presented to the ER for right anterior knee abscess. Patient was initially seen in the ER on 03/02/19 for similar complaints at that point in time she was noted to have a 2 cm anterior right knee abscess which was drained and she was subsequently discharged home on Bactrim. Culture from the prior abscess grew MRSA sensitive to Bactrim and patient reported compliance with antibiotics. Her knee did not improve so she really presented to the ER. On presentation there her vital signs were within normal limits and laboratory analysis is essentially unremarkable. She did not have any repeat imaging as she had a x-ray of her knee prior which did not show any bony abnormality. Seen by orthopedic surgery and recommendations were for I and D which was completed on 03/08 with insertion of a drain and sutures, found to have grossly purulent fluid. Patient did have a little blood loss anemia after the procedure which should self correct. She also had a slightly elevated white blood cell count was felt to be secondary to the procedure. She will complete a course of oral antibiotics after the case was discussed with infectious disease, patient [place] [facility] [place] and has a hx of drug use. She'll complete her course of Bactrim as her previous cultures were sensitive to bactrim. She will see DIANA Maynard in 2 weeks in the office and establish with Dr. Noe for a PCP. She will need to stay off work for 2 weeks as per ortho and was provided a note. She will complete daily dressing changes. She is Patient seen and examined at bedside. Pain controlled, no nausea, no vomiting, no diarrhea. Vital signs reviewed and stable. General: non toxic, no distress, appears at stated age Derm: warm, dry Head: atraumatic, normocephalic, symmetric Eyes: EOMI, no lid lag, anicteric sclera Mouth: no lip lesion, mucus membranes moist Cardiovascular: S1S2 reg, no murmur, positive posterior tibial pulse bilateral, Lungs: CTA bilateral, no rhonchi, no rales , no accessory muscle use Abdominal: soft, nontender to palpation, no guarding, no appreciable organomegaly Ext: right knee with kirlex dressing in place, no gross muscle atrophy, no edema, no contractures Neuro: CN II-XI grossly intact, no focal neuro deficits Psych: Alert, oriented, appropriate affect A total of 35 minutes of time were spent preparing this complex discharge summary . Patient Condition at Discharge: Stable Plan - Discharge Summary Discharge Rx Participant: No New Discharge Prescriptions: New traMADol HCl [Ultram] 50 mg PO Q6H PRN #15 tab PRN Reason: Pain Sulfamethox-Tmp 800-160Mg [Bactrim DS 800-160 mg] 1 tab PO Q12HR #14 tab Continue Acetaminophen [Tylenol] 650 mg PO Q6H PRN PRN Reason: Pain Discontinued Sulfamethox-Tmp 800-160Mg [Bactrim DS 800-160 mg] 1 tab PO Q12HR #20 tab Discharge Medication List Acetaminophen [Tylenol] 650 mg PO Q6H PRN 03/07/19 [History] Sulfamethox-Tmp 800-160Mg [Bactrim DS 800-160 mg] 1 tab PO Q12HR #14 tab 03/09/19 [Rx] traMADol HCl [Ultram] 50 mg PO Q6H PRN #15 tab 03/09/19 [Rx] Follow up Appointment(s)/Referral(s): Andrea Del Toro PAC [PHYSICIAN DISTRIBUTION WAREHOUSE MANAGER] - 2 Weeks None,Stated [Primary Care Provider] - 1-2 days Jono Noe MD [REFERRING] - 1 Week (office is closed on Fridays, please make a follow up appointment. ) Patient Instructions/Handouts: Abscess (ED) Activity/Diet/Wound Care/Special Instructions: Orthopedic discharge instructions: 1. Daily dressing changes, keep incision covered and dry while showering 2. Ice and elevate often 3. Weight-bear as tolerated, avoid excess flexion, no kneeling 4. Plan for follow-up in 2 weeks Diet: regular Activity: as tolerated Discharge/Stand Alone Forms: Work/Release Restrictions Form Discharge Disposition: HOME WITH HOME HEALTH SERVICES
--- NOTE | 2019-03-12 17:35 | CDI ---
Documentation Clarification Form Date: 03/12/2019 4:22:00 PM From: Jacqueline Osullivan Phone: If you have a question regarding this query, please call Verenice Sylvester at [phone] between 8am and 5pm. Admit Date: 03/08/2019 1:38:00 PM Patient Name: Dora Lucas Visit Number: [id number] Discharge Date: 03/09/2019 3:08:00 PM ATTENTION: The Clinical Documentation Specialists (CDI) and [facility] Coding Staff appreciate your assistance in clarifying documentation. Please respond to the clarification below the line at the bottom and electronically sign. The CDI & [facility] Coding staff will review the response and follow-up if needed. Please note: Queries are made part of the Legal Health Record. If you have any questions, please contact the author of this message via ITS. Dr. Shweta Adkins A diagnosis of anemia lacks specificity to accurately reflect your patients severity of condition and clarification is needed. Documentation in your discharge summary stated blood loss anemia. History/Risk Factors: Incision and drainage with irrigation and debridement of the prepatellar bursa Clinical indicators: Decreased hgb & hct Hemoglobin: 10.4 Hematocrit: 32.9 Treatment: No treatment, documentation stated that the anemia should self correct. In order to capture the severity of condition, please clarify the type of anemia and etiology if known: Acute blood loss anemia Chronic blood loss anemia Iron deficiency anemia Unable to determine Other, please specify Acute blood loss anemia MTDD
== END 2019-03-09 15:08 | disposition home or self-care (01) | DRG 501 ==
LOC: EC 23:38 → 1SOBS 03-07 05:57 → OBSVTOIN 03-08 13:38
PROVIDERS: ADMIT Internal Medicine; ATTEND Internal Medicine
PROC: 0MBN0ZZ Excision of Right Knee Bursa and Ligament, Open Approach (ICD-10-PCS; principal; 2019-03-08 12:40)
DX: M71.061 Abscess of bursa, right knee (principal); D62 Acute posthemorrhagic anemia; B95.62 Methicillin resistant Staphylococcus aureus infection as the cause of diseases classified elsewhere; D72.829 Elevated white blood cell count, unspecified; E66.9 Obesity, unspecified; F17.210 Nicotine dependence, cigarettes, uncomplicated; Z68.30 Body mass index [BMI] 30.0-30.9, adult; Z88.6 Allergy status to analgesic agent; Z86.14 Personal history of Methicillin resistant Staphylococcus aureus infection; Z90.49 Acquired absence of other specified parts of digestive tract; Z59.0 Homelessness; Z65.3 Problems related to other legal circumstances
CPT/HCPCS: 36415; 80048; 80202; 80306; 81001; 81025; 85025; 85027; 87040; 87070; 87075; 87077; 87102; 87186; 87205; 96365; 96366; 99284

== ENCOUNTER 2019-04-30 15:52 | Emergency (ER) | payer OTHER ==
[2019-04-30 15:56] VITALS: BP 127/85; PULSE 70; RESP 18; TEMP 98.3
--- NOTE | 2019-04-30 18:04 | XR ---
EXAMINATION TYPE: XR knee complete RT DATE OF EXAM: 04/30/2019 COMPARISON: 03/02/2019 HISTORY: Knee pain TECHNIQUE: 3 views FINDINGS: Joint spaces are fairly normal. I see no fracture nor dislocation. There is minor spurring on the anterior patella. IMPRESSION: No acute abnormality of the right knee. No change. No fracture.
--- NOTE | 2019-04-30 18:33 | ED ---
Fall HPI - General Chief Complaint: Fall Stated Complaint: [facility] - RT KNEE INJURY Time Seen by Provider: 04/30/19 16:01 Source: patient Mode of arrival: wheelchair - History of Present Illness Initial Comments: Patient is a 33-year-old female presenting to the emergency Department with complaints of right knee pain after tripping over something at work today. Patient states she landed onto her right knee. Patient had an abscess on her right knee drained approximately 3 weeks ago and she is bleeding from the area. Patient is able to bear weight on her right extremity. Patient denies hitting her head or any other injuries from the fall. Bleeding is controlled at this time. Patient denies fever, chills. Upon arrival to ER, vital signs are stable. - Related Data Home Medications Medication Instructions Recorded Confirmed Acetaminophen [Tylenol] 650 mg PO Q6H PRN 03/07/19 03/07/19 Previous Rx's Medication Instructions Recorded Sulfamethox-Tmp 800-160Mg [Bactrim 1 tab PO Q12HR #14 tab 03/09/19 DS 800-160 mg] traMADol HCl [Ultram] 50 mg PO Q6H PRN #15 tab 03/09/19 Allergies Allergy/AdvReac Type Severity Reaction Status Date / Time ibuprofen [From Motrin] Allergy Rash/Hives Verified 04/30/19 15:56 Review of Systems ROS Statement: Those systems with pertinent positive or pertinent negative responses have been documented in the HPI. ROS Other: All systems not noted in ROS Statement are negative. 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 History of Any Multi-Drug Resistant Organisms: MRSA Date of last positivie culture/infection: 03/08/19 MDRO Source:: MRSA KNEE Past Surgical History: Cholecystectomy, Orthopedic Surgery Past Psychological History: No Psychological Hx Reported Smoking Status: Current every day smoker Past Alcohol Use History: None Reported Past Drug Use History: None Reported General Exam - General Exam Comments Initial Comments: GENERAL: Well-appearing, well-nourished and in no acute distress. HEAD: Atraumatic, normocephalic. EYES: Pupils equal round and reactive to light, extraocular movements intact, sclera anicteric, conjunctiva are normal. ENT: TMs normal, nares patent, oropharynx clear without exudates. Moist mucous membranes. NECK: Normal range of motion, supple without lymphadenopathy or JVD. LUNGS: Breath sounds clear to auscultation bilaterally and equal. No wheezes rales or rhonchi. HEART: Regular rate and rhythm without murmurs, rubs or gallops. ABDOMEN: Soft, nontender, normoactive bowel sounds. No guarding, no rebound. No masses appreciated. : Deferred EXTREMITIES: Patient has slightly decreased right knee flexion secondary to pain. Neurovascular intact. Patient has full extension. No swelling. No clubbing or cyanosis. NEUROLOGICAL: Cranial nerves II through XII grossly intact. Normal speech, normal gait. PSYCH: Normal mood, normal affect. SKIN: Warm, Dry, normal turgor,. Patient has some mild bleeding coming from a small, superficial wound to her right anterior knee. No sutures required. Bleeding is minimal. Limitations: no limitations Course Vital Signs 04/30/19 15:54 Temperature 98.3 F Pulse Rate 70 Respiratory 18 Rate Blood Pressure 127/85 O2 Sat by Pulse 99 Oximetry Medical Decision Making - Medical Decision Making Patient is a 33-year-old female presenting with right knee pain after falling today at work. Patient has full range of motion, x-rays reveal no acute fractures/dislocations. Patient's wound was bandaged and bleeding is controlled. No sutures required. Patient is stable for discharge at this time. Patient will use ice and Tylenol for pain control. Patient is in agreement with this plan of care. Return parameters were discussed with the patient she verbalized understanding. Disposition Clinical Impression: Fall, Right anterior knee pain Disposition: HOME SELF-CARE Condition: Stable Instructions (If sedation given, give patient instructions): Contusion in Adults (ED), Knee Pain (ED) Additional Instructions: Please return to the Emergency Department if symptoms worsen or any other concerns. Use ice and Tylenol for pain relief. Is patient prescribed a controlled substance at d/c from ED?: No Referrals: None,Stated [Primary Care Provider] - 1-2 days
== END 2019-04-30 18:40 | disposition home or self-care (01) ==
LOC: EC 15:52
DX: M25.561 Pain in right knee (principal); F17.200 Nicotine dependence, unspecified, uncomplicated; Z88.6 Allergy status to analgesic agent; W01.0XXA Fall on same level from slipping, tripping and stumbling without subsequent striking against object, initial encounter; Y92.69 Other specified industrial and construction area as the place of occurrence of the external cause; Y99.0 Civilian activity done for income or pay
CPT/HCPCS: 99283